=== PATIENT | female | born 1955 | race Caucasian/White ===

== ENCOUNTER → 2018-04-02 17:17 | Outpatient (CLI) | payer BC, SELFPAY ==
--- NOTE | 2018-04-02 17:24 | MM_ITS ---
MM Dig screening mamm BI w/CAD CAD Screening COMPARISON: Digital mammograms with CAD 06/28/2016 and 06/16/2015 INDICATION: There is a history of breast cancer patient maternal aunt. TECHNIQUE: Standard CC and MLO images were obtained. R2 CAD reviewed. FINDINGS: Moderate scattered fibro glandular densities are seen in both breasts. There is no suspicious lesion and there are no suspicious microcalcifications. IMPRESSION: Fibrofatty parenchyma no suspicious lesion seen BI-RADS Category: 1 Negative RECOMMENDED FOLLOW-UP: 1YR - 1 YEAR FOLLOW-UP (A letter has been sent to the patient regarding results of the study.)
== END ==
PROVIDERS: Family Provider Family Medicine; PCP Family Medicine; Visit Provider Obstetrics & Gynecology
DX: Z01.419 Encounter for gynecological examination (general) (routine) without abnormal findings (principal)
CPT/HCPCS: 77067

== ENCOUNTER 2018-11-08 17:30 | Outpatient (RCR) | payer BC, SELFPAY ==
--- NOTE | 2018-10-22 17:55 | HMH.PTOPEV ---
PT Outpatient Evaluation Rehab PT Outpatient Evaluation Start: 10/22/18 16:48 Freq: Status: Active Protocol: Document 10/22/18 16:49 DOROTEOESTHER (Rec: 10/22/18 17:55 DOROTEOESTHER [id number]) Electronically Signed By Patel Garcia, PT 10/22/18 16:49 Outpatient Therapy Subjective History Subjective History This is the initial Physical Therapy eevaluation for Chelo Sebastian. Pt is a 63 y/ o female referred to PT for c/ o L hip pain. Pt reports insidious onset of pain around the end of August. Pt reports she had Xray done by Ortho MD showing impingement and arthritis. Pt states pain is in lateral L hip and L buttocks. Chief Complaint Pain,Stiff Symptom Type Ache,Throb,Sharp Symptoms Relieved By Rest/Positioning,OTC Meds Symptoms Aggravated By Standing,Physical Activity Prior Functional Limitations None Current Functional Limitations Desk Work/Reading,Driving, Sleeping,Standing,Squatting, Recreation Activity,Walking Symptom Description Constant but Variable Level of pain today (0-10) 3 Pain scale - at its best (0-10) 1 Pain scale - at its worst (0-10) 5 Hip/Knee Eval Gait Observation General Gait Pattern Observation Antalgic Gait Assistive Device Assistive Devices None / NA Palpation Tenderness left Hip Palpation Findings Tenderness MMT Hip Flexion Strength Grade 4 Good Hip Abduction Strength Grade 4 Good Hip Adduction Strength Grade 4 Good Hip Extension Strength Grade 4 Good Hip External Rotation Strength Grade 4- Good- Hip Internal Rotation Strength Grade 4 Good Knee Strength Reason Not Measured WFL Special Tests Hip Bowstring (Cram) Test Negative Left Hip Brody Test Negative Left Hip Piriformis Test Positive Left Hip 90-90 Straight Leg Raise Test Negative Left Sciatic Nerve Tension Test Negative Left Hip Scouring (Quadrant) Test Negative Left Outpatient Therapy Assessment Impairments Problems/Impairmments Palpation Tenderness,Impaired Strength,Impaired Gait Pattern ,Impaired Walking,Impaired Standing,Impaired Driving, Impaired Shower/Bathing, Impaired Household Care, Impaired Stair Climbing, Impaired Squatting,Impaired
== END 2018-12-09 17:35 | disposition home or self-care (01) ==
LOC: PT 17:30
PROVIDERS: Visit Provider Orthopaedic Surgery
DX: M70.60 Trochanteric bursitis, unspecified hip (principal)
CPT/HCPCS: 97110; 97163

== ENCOUNTER → 2019-04-24 15:03 | Outpatient (CLI) | payer BC, SELFPAY ==
--- NOTE | 2019-04-24 15:04 | XR_ITS ---
PROCEDURE: XR DEXA AXIAL SKELETON CLINICAL HISTORY: screening COMPARISON: No exams were available for comparison FINDINGS: The L1-L4 density has a T-score of 1.3. The density is 1.333 grams/centimeters sq. The lowest density of the hips is in the left femoral neck at 0.894 grams/centimeters sq with a T-score of -1 considered normal with low fracture risk. IMPRESSION: Normal bone density with low fracture risk. Suggest follow-up exam April 2021 Dictated by: Robe Mahmood MD 04/24/2019 16:38 Electronically signed by Robe Mahmood MD in [place] 04/24/2019 16:38
--- NOTE | 2019-04-24 15:04 | MM_ITS ---
PROCEDURE: MM DIG SCREENING MAMM BI W/CAD Patient Age:63Y CLINICAL INDICATION: screening no hormones, no new complaints. Noncontributory family history COMPARISON: [facility] DIG MAMM-SCREEN SARAH from 03/26/2014 a [facility] DIG MAMM- SARAH ADD VIEWS from 04/10/2014 [facility] DIG MAMM-SCREEN SARAH from 06/16/2015 [facility] DIG MAMM-SCREEN SARAH W/CAD from 06/28/2016 [facility] MM Dig screening mamm BI w/CAD from 04/02/2018 TECHNIQUE: Standard CC and MLO images were obtained. R2 CAD reviewed. additional axillary CC view right and left breast included FINDINGS: Moderate density breast, moderate fibroglandular elements bilateral. No significant new findings, no dominant or suspicious mass, no suspicious calcifications. IMPRESSION: Stable bilateral mammogram . no new areas of significant concern. Bilateral follow-up 1 year recommended BI-RAD Category: 1 Negative the FOLLOW-UP: 1YR 1 Year Follow-up (A letter has been sent to the patient regarding results of the study.) Dictated by: Jerad Diamond MD 04/25/2019 20:11 Electronically signed by Jerad Diamond MD in [place] 04/25/2019 20:11
== END ==
PROVIDERS: PCP Family Medicine; Visit Provider Obstetrics & Gynecology
DX: Z78.0 Asymptomatic menopausal state (principal); Z12.31 Encounter for screening mammogram for malignant neoplasm of breast; Z13.820 Encounter for screening for osteoporosis
CPT/HCPCS: 77067; 77080

== ENCOUNTER → 2020-02-06 09:45 | Outpatient (CLI) | payer BC, SELFPAY ==
--- NOTE | 2020-02-06 09:46 | CA_ITS ---
APPROVED REPORT EXAM: Comprehensive 2D, Doppler, and color-flow Echocardiogram [employer] Worker: Umm Lovett CRT Ht: 5 ft 5 in Wt: 210lbs BSA: 2.02 BP: 168/81 mmHg Indications: SOA,EDEMA,CAD,DM,HTN,HLD 2D Dimensions LVOT 1.85 cm (M/F) 1.5-2.5 M-Mode Dimensions RVDd 2.25 cm (0.9-2.6) LVDd 4.60 cm (3.5-5.7) LVDs 2.76 cm (3.5-5.7) IVSd 1.18 cm (0.6-1.1) PWd 0.67 cm (0.6-1.1) EF (Teich) 70.70% FS 40.00% EDV (Teich) 97.30 mL ESV (Teich) 28.50 mL LV Diastology E/A Ratio 0.87 Mitral Valve MV A Velocity 93.00 (40-130 cm/s) Left Ventricle Left atrium is mildly enlarged, left ventricle is normal size, mild concentric left ventricular hypertrophy, visually estimated ejection fraction 55% with no regional wall motion abnormality, grade 1 diastolic dysfunction seen without tissue Doppler evidence of raise left atrial pressure. Right Ventricle Right atrium and right ventricular normal size and contractility. Aortic Valve Aortic valve is minimally thickened and fibrosed, there is no aortic stenosis or aortic insufficiency. Mitral Valve Mitral valve is grossly normal, there is mild mitral regurgitation. Tricuspid Valve Tricuspid valve grossly normal, there is mild tricuspid regurgitation, tricuspid regurgitation jet velocity is inadequate for calculation of the right ventricular systolic pressure. Pulmonic Valve Pulmonic valve is poorly visualized. Great Vessels Aortic root is normal size. Pericardium No significant pericardial effusion noted. Conclusion 1. Mildly enlarged left atrium, normal left ventricular size, mild concentric left ventricular hypertrophy, visually estimated ejection fraction 55% with no regional wall motion abnormality, grade 1 diastolic dysfunction seen without tissue Doppler evidence of raise left atrial pressure. 2. Mild mitral and tricuspid regurgitation. 3. No significant pericardial effusion noted. Electronically signed by : Jason Martin, 02/06/2020 15:17:09
== END ==
PROVIDERS: PCP Family Medicine; Visit Provider Urology
DX: R06.00 Dyspnea, unspecified (principal); I25.10 Atherosclerotic heart disease of native coronary artery without angina pectoris; E78.5 Hyperlipidemia, unspecified; I10 Essential (primary) hypertension
CPT/HCPCS: 93306

== ENCOUNTER → 2020-02-12 15:48 | Outpatient (CLI) | payer BC, SELFPAY ==
[2020-02-14 13:16] LABS: Covid-19 Nasal PCR Sendout Lex NOT DETECTED
== END ==
PROVIDERS: PCP Family Medicine; Visit Provider Family Medicine
DX: Z03.818 Encounter for observation for suspected exposure to other biological agents ruled out (principal)
CPT/HCPCS: U0004

== ENCOUNTER → 2020-04-27 10:18 | Outpatient (CLI) | payer BC, SELFPAY ==
--- NOTE | 2020-04-27 10:18 | MM_ITS ---
PROCEDURE: MM DIG SCREENING MAMM BI W/CAD Digital Breast Tomosynthesis Included CLINICAL INDICATION: Routine Screening Mammogram There is a history of breast cancer patient's maternal aunt. The patient currently is on estrogen. COMPARISON: MG [facility] DIG MAMM-SCREEN SARAH W/CAD from 06/28/2016 MG [facility] MM Dig screening mamm BI w/CAD from 04/02/2018 MG MM DIG SCREENING MAMM BI W/CAD from 04/24/2019 TECHNIQUE: Standard CC and MLO images and 3D Tomosynthesis was obtained. R2 CAD reviewed. FINDINGS: Moderate diffuse fibroglandular densities are seen in the central portions of both breasts. There is a mole marker left breast. There is a benign-appearing calcification right breast. There is no suspicious lesion and no suspicious microcalcifications. IMPRESSION: Moderate diffuse breast density with no suspicious lesions seen BI-RAD Category: 2 Benign Finding(s) FOLLOW-UP: 1YR 1 Year Follow-up (A letter has been sent to the patient regarding results of the study.) Dictated by: Dr. Paul Leon MD 05/01/2020 09:46 Dr. Paul Leon MD in [place] 05/01/2020 09:46
== END ==
PROVIDERS: PCP Family Medicine; Visit Provider Obstetrics & Gynecology
DX: Z12.31 Encounter for screening mammogram for malignant neoplasm of breast (principal)
CPT/HCPCS: 77063; 77067

== ENCOUNTER → 2020-07-25 10:54 | Outpatient (CLI) | payer BC, SELFPAY ==
[2020-07-25 12:03] LABS: Chloride 103 mmol/L (98-107); Potassium 5.6 mmoL/L (3.5-5.1); Sodium 139 mmol/L (136-145)
[2020-07-25 12:06] LABS: Anion Gap 12.6 mEq/L (5-15); Blood Urea Nitrogen 10 mg/dl (7-17); Carbon Dioxide 29 mmol/L (22.0-30.0); Estimated Glomerular Filt Rate 85 ml/min (>60); GFR (African American) 102 ML/MIN (>60); Glucose 254 mg/dl (74-100)
== END ==
PROVIDERS: Visit Provider Physician Assistant
DX: I25.10 Atherosclerotic heart disease of native coronary artery without angina pectoris (principal); R06.00 Dyspnea, unspecified; I10 Essential (primary) hypertension; E78.5 Hyperlipidemia, unspecified
CPT/HCPCS: 36415; 80048

== ENCOUNTER → 2020-08-04 11:50 | Outpatient (CLI) | payer BC, SELFPAY ==
[2020-08-04 12:52] LABS: Chloride 100 mmol/L (98-107); Potassium 5.5 mmoL/L (3.5-5.1); Sodium 136 mmol/L (136-145)
[2020-08-04 12:55] LABS: Anion Gap 13.5 mEq/L (5-15); Blood Urea Nitrogen 13 mg/dl (7-17); Carbon Dioxide 28 mmol/L (22.0-30.0); Estimated Glomerular Filt Rate 84 ml/min (>60); GFR (African American) 102 ML/MIN (>60); Glucose 297 mg/dl (74-100)
== END ==
PROVIDERS: Visit Provider Nurse Practitioner Family
DX: E78.5 Hyperlipidemia, unspecified (principal); I10 Essential (primary) hypertension; I25.10 Atherosclerotic heart disease of native coronary artery without angina pectoris; R06.00 Dyspnea, unspecified; Z90.710 Acquired absence of both cervix and uterus
CPT/HCPCS: 36415; 80048

== ENCOUNTER → 2020-08-18 13:37 | Outpatient (CLI) | payer BC, SELFPAY ==
[2020-08-18 14:57] LABS: Chloride 103 mmol/L (98-107); Sodium 140 mmol/L (136-145)
[2020-08-18 15:00] LABS: Blood Urea Nitrogen 7 mg/dl (7-17); Calcium 9.6 mg/dl (8.4-10.2); Carbon Dioxide 27 mmol/L (22.0-30.0); Estimated Glomerular Filt Rate 101 ml/min (>60); GFR (African American) 122 ML/MIN (>60); Glucose 144 mg/dl (74-100)
== END ==
PROVIDERS: Visit Provider Physician Assistant
DX: E87.5 Hyperkalemia (principal)
CPT/HCPCS: 36415; 80048

== ENCOUNTER → 2020-10-09 13:51 | Outpatient (CLI) | payer BC, SELFPAY | PROVIDERS: PCP Family Medicine; Visit Provider Nurse Practitioner Family | DX: Z20.822 Contact with and (suspected) exposure to COVID-19 (principal); U07.1 COVID-19 | CPT/HCPCS: U0003 ==

== ENCOUNTER → 2021-05-12 16:13 | Outpatient (CLI) | payer BC, SELFPAY ==
--- NOTE | 2021-05-12 16:13 | MM_ITS ---
PROCEDURE INFORMATION: Exam: MG Bilateral Screening 3D Mammography Exam date and time: 05/12/2021 4:13 PM Age: 65 years old Clinical indication: Encounter for screening mammogram for malignant neoplasm of breast . Family history of breast carcinoma. TECHNIQUE: Imaging protocol: Bilateral screening tomosynthesis and 2D mammography including computer-aided detection (CAD) when performed. COMPARISON: 1. MG MM DIG SCREENING MAMM BI W/CAD 04/27/2020 10:49 AM 2. MG MM DIG SCREENING MAMM BI W/CAD 04/24/2019 3:48 PM 3. MG [facility] MM Dig screening mamm BI w/CAD 04/02/2018 5:29 PM FINDINGS: MAMMOGRAPHY: Breast composition: The breasts are heterogeneously dense, which may obscure small masses. Mass: No suspicious masses. Architectural distortion: No suspicious distortion. Calcifications: No suspicious calcifications. Asymmetric density: None. Skin thickening: None. Axillary adenopathy: None. IMPRESSION: No mammographic evidence of malignancy. Annual screening is recommended unless otherwise clinically indicated. ASSESSMENT: BI-RADS Category 1: Negative
== END ==
PROVIDERS: PCP Family Medicine; Visit Provider Obstetrics & Gynecology
DX: Z12.31 Encounter for screening mammogram for malignant neoplasm of breast (principal)
CPT/HCPCS: 77063; 77067

== ENCOUNTER → 2022-03-18 13:40 | Outpatient (CLI) | payer BC, SELFPAY ==
--- NOTE | 2022-03-18 13:45 | CA_ITS ---
APPROVED REPORT EXAM: Comprehensive 2D, Doppler, and color-flow Echocardiogram Switch Operator: Nikki Armstrong RVT Ht: 5 ft 5 in Wt: 192lbs BSA: 1.94 BP: 121/71 mmHg Indications: SOA,CAD,HTN,HLD 2D Dimensions LVOT 1.92 cm (M/F) 1.5-2.5 LA Volume 20.00 mL LA Volume Index 10.30 mL/m2 (M/F) 16-34 M-Mode Dimensions RVDd 1.75 cm (0.9-2.6) LA Diam 3.07 cm (1.9-4.0) LVDd 3.83 cm (3.5-5.7) Ao Diam 2.78 cm (2.0-3.7) LVDs 2.47 cm (3.5-5.7) IVSd 1.18 cm (0.6-1.1) PWd 0.82 cm (0.6-1.1) EF (Teich) 65.60% FS 35.50% EDV (Teich) 63.10 mL TAPSE 2.21 (<1.7) ESV (Teich) 21.70 mL LV Diastology E Decel Time 250.00 (160-240 msec) E/A Ratio 0.9 MED E' 6.90 (< 7 cm/sec) E'/MED E' Ratio 11.45 (>14) LAT E' 6.80 (<10 cm/sec) E/LAT E' Ratio 11.62 (>14) Aortic Valve AO Peak GR. 4.90 mmHg Mitral Valve MV E Max Ervin. 79.00 (40-130 cm/s) MV A Velocity 88.00 (40-130 cm/s) E/A Ratio 0.90 MV Decel. Time 250.00 (160-240 ms) MV PHT 73.00 ms Pulmonary Valve PV Peak Velocity 86.00 (50-150 cm/s) Tricuspid Valve TR P. Velocity 214.00 cm/s RAP Estimate 10.00 mmHg RVSP 28.30 mmHg Left Ventricle Left atrium is mildly enlarged, left ventricle is normal size mild concentric left ventricular hypertrophy, estimated ejection fraction 55% with no regional wall motion abnormality, grade 1 diastolic dysfunction seen without tissue Doppler evidence of raise left atrial pressure. Right Ventricle Right atrium and right ventricle is normal size and contractility. Aortic Valve Aortic valve is grossly normal there is no aortic stenosis aortic insufficiency. Mitral Valve Mitral valve is grossly normal, there is trace mitral regurgitation. Tricuspid Valve Tricuspid valve grossly normal, there is trace tricuspid regurgitation, tricuspid regurgitation jet velocity is inadequate for calculation of the right ventricular systolic pressure. Pulmonic Valve Pulmonic valve is poorly visualized. Great Vessels Aortic root is normal size. Inferior vena cava is normal size with normal inspiratory collapse. Pericardium No significant pericardial effusion noted. Conclusion 1. Mild in the left atrium, normal left ventricular size, mild concentric left ventricular hypertrophy, estimated ejection fraction 55% with no regional wall motion abnormality, grade 1 diastolic dysfunction seen without tissue Doppler evidence of reduced left atrial pressure. 2. Trace mitral and tricuspid regurgitation. 3. No significant pericardial effusion noted. 4. Inferior vena cava is normal size with normal inspiratory collapse. Electronically signed by : Jason Martin MD 03/18/2022 14:24:15
== END ==
PROVIDERS: PCP Nurse Practitioner Family; Visit Provider Nurse Practitioner Family
DX: R06.00 Dyspnea, unspecified (principal); I25.10 Atherosclerotic heart disease of native coronary artery without angina pectoris; I10 Essential (primary) hypertension; E78.2 Mixed hyperlipidemia
CPT/HCPCS: 93306

== ENCOUNTER → 2022-05-27 15:44 | Outpatient (CLI) | payer BC, SELFPAY ==
--- NOTE | 2022-05-27 15:44 | MM_ITS ---
PROCEDURE INFORMATION: Exam: MG Bilateral Screening 3D Mammography Exam date and time: 05/27/2022 3:44 PM Age: 66 years old Clinical indication: Screening. A maternal aunt had breast cancer. TECHNIQUE: Imaging protocol: Bilateral Screening tomosynthesis and 2D mammography including computer-aided detection (CAD) when performed. COMPARISON: 1. MG MM DIG SCREENING MAMM BI W/CAD 05/12/2021 4:15 PM 2. MG MM DIG SCREENING MAMM BI W/CAD 04/27/2020 10:49 AM 3. MG MM DIG SCREENING MAMM BI W/CAD 04/24/2019 3:48 PM 4. MG [facility] MM Dig screening mamm BI w/CAD 04/02/2018 5:29 PM FINDINGS: MAMMOGRAPHY: Breast composition: The breasts are heterogeneously dense, which may obscure small masses. Mass: Possible 0.7 cm lobulated mass in the left breast 12 o'clock anterior to middle 3rd, better seen in the CC projection frame 23 than MLO frame 29. Architectural distortion: Possible 0.7 cm lobulated mass with architectural distortion in the left breast 12 o'clock, middle to posterior 3rd, better seen in the CC projection frame 23 than MLO frame 29. Calcifications: No suspicious calcifications. Asymmetric density: None. Skin thickening: None. Axillary adenopathy: None. IMPRESSION: Patient to be recalled for left diagnostic spot compression in CC and MLO and left breast ultrasound for further evaluation of possible left breast masses and architectural distortion. ASSESSMENT: BI-RADS Category 0: Incomplete- Need Additional Imaging Evaluation and/or Prior Mammograms for Comparison
== END ==
PROVIDERS: PCP Nurse Practitioner Family; Visit Provider Obstetrics & Gynecology
DX: Z12.31 Encounter for screening mammogram for malignant neoplasm of breast (principal)
CPT/HCPCS: 77063; 77067

== ENCOUNTER → 2022-06-17 13:40 | Outpatient (CLI) | payer BC, SELFPAY ==
--- NOTE | 2022-06-17 13:41 | MM_ITS ---
PROCEDURE INFORMATION: Exam: US Left Breast, Complete MG Left Diagnostic Breast Tomosynthesis Exam date and time: 06/17/2022 1:40 PM Age: 66 years old Clinical indication: Recall on the basis of screening mammogram 05/27/2022 for further evaluation of possible mass and architectural distortion in the left breast at 12 o'clock. TECHNIQUE: Imaging protocol: Complete ultrasound of all four quadrants of the Left breast and the retroareolar regions, including ultrasound of the axilla when performed. Left Diagnostic tomosynthesis and 2D mammography including computer-aided detection (CAD) when performed. Unilateral or bilateral exam. COMPARISON: 1. MG MM DIG SCREENING MAMM BI W/CAD 05/27/2022 3:44 PM 2. MG MM DIG SCREENING MAMM BI W/CAD 05/12/2021 4:15 PM 3. MG MM DIG SCREENING MAMM BI W/CAD 04/27/2020 10:49 AM 4. MG MM DIG SCREENING MAMM BI W/CAD 04/24/2019 3:48 PM FINDINGS: MAMMOGRAPHY: Spot compression at 12 o'clock demonstrates no persistent mass or architectural distortion. ULTRASOUND: Left sonography, all 4 quadrants retroareolar and axilla demonstrates at 10 o'clock 5 cm from the nipple, a complicated, avascular, cyst with thin septation measuring 0.5 x 0.2 x 0.5 cm which likely corresponds the mammographic mass at 12 o'clock. No suspicious cystic or solid or non masslike sonographic finding is demonstrated. Sonographically unremarkable left axillary lymph node. IMPRESSION: Probable benign subcentimeter cystic change at 10 o'clock, suggest six-month follow-up left diagnostic mammogram and targeted left sonography, unless otherwise clinically indicated. ASSESSMENT: BI-RADS Category 3: Probably benign
== END ==
PROVIDERS: PCP Nurse Practitioner Family; Visit Provider Obstetrics & Gynecology
DX: R92.8 Other abnormal and inconclusive findings on diagnostic imaging of breast (principal)
CPT/HCPCS: 76641; 77061; 77065; G0279

== ENCOUNTER → 2022-12-27 13:54 | Outpatient (CLI) | payer BC, SELFPAY ==
--- NOTE | 2022-12-27 13:54 | US_ITS ---
PROCEDURE INFORMATION: Exam: US Left Breast, Complete MG Left Diagnostic Breast Tomosynthesis Exam date and time: 12/27/2022 1:55 PM Age: 67 years old Clinical indication: Short-term radiographic followup; Abnormal findings on imaging; Left; mass TECHNIQUE: Imaging protocol: Complete ultrasound of all four quadrants of the left breast and the retroareolar regions, including ultrasound of the axilla when performed. Left Diagnostic tomosynthesis and 2D mammography including computer-aided detection (CAD) when performed. Unilateral or bilateral exam. COMPARISON: 1. MG MM DIG MAMM DX UNILAT LT CAD 06/17/2022 1:40 PM 2. MG MM DIG SCREENING MAMM BI W/CAD 05/27/2022 3:44 PM FINDINGS: MAMMOGRAPHY: The breast tissue is composed of scattered areas of fibroglandular density. There is no stellate mass, architectural distortion or suspicious microcalcifications to suggest malignancy. No persistent mass lesion on routine or spot compression views. No skin thickening or axillary adenopathy. ULTRASOUND: Sonographic images of the left breast including the retroareolar region, all 4 quadrants and the axilla do not demonstrate any solid masses. 0.3 cm cyst in the 10 o'clock axis 5 cm from the nipple. Cursors were placed over normal fatty tissue in the left upper inner quadrant. No architectural distortion or acoustical shadowing. No skin thickening or axillary adenopathy. IMPRESSION: No mammographic or sonographic evidence of malignancy. Annual bilateral mammographic screening is recommended in June 2023 unless otherwise clinically indicated. ASSESSMENT: BI-RADS Category 2: Benign
== END ==
PROVIDERS: PCP Nurse Practitioner Family; Visit Provider Obstetrics & Gynecology
DX: R92.8 Other abnormal and inconclusive findings on diagnostic imaging of breast (principal)
CPT/HCPCS: 76641; 77061; 77065; G0279

== ENCOUNTER 2023-09-05 13:40 | Outpatient (CLI) | payer BC, SELFPAY ==
--- NOTE | 2023-09-05 13:41 | MM_ITS ---
PROCEDURE INFORMATION: Exam: MG Bilateral Screening 3D Mammography Exam date and time: 09/05/2023 1:47 PM Age: 68 years old Clinical indication: Screening examination TECHNIQUE: Imaging protocol: Bilateral Screening tomosynthesis and 2D mammography including computer-aided detection (CAD) when performed. COMPARISON: 1. MG MM DIG MAMM DX UNILAT LT CAD 12/27/2022 1:55 PM 2. MG MM DIG MAMM DX UNILAT LT CAD 06/17/2022 1:40 PM FINDINGS: MAMMOGRAPHY: Breast composition: There are scattered areas of fibroglandular density. Mass: None. Architectural distortion: None. Calcifications: No suspicious calcifications. Asymmetric density: None. Skin thickening: None. Axillary adenopathy: None. IMPRESSION: No mammographic evidence of malignancy. Annual screening is recommended unless otherwise clinically indicated. ASSESSMENT: BI-RADS Category 1: Negative
== END 2023-09-05 23:59 ==
LOC: RAD 13:41
PROVIDERS: PCP Nurse Practitioner; Visit Provider Obstetrics & Gynecology
DX: Z12.31 Encounter for screening mammogram for malignant neoplasm of breast (principal)
CPT/HCPCS: 77063; 77067